=== PATIENT | female | born 1980 | race Caucasian/White ===

== ENCOUNTER 2018-07-15 21:22 | Emergency (ER) | payer OTHER, BC ==
[2018-07-15 21:36] VITALS: BP 145/83; PULSE 86; TEMP 98.6; BMI 31.2
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
[2018-07-15] MEDS ORDERED: IBUPROFEN 600 MG TABLET (FP) PO ONE ×2 (21:50→21:51)
== END 2018-07-15 21:57 | disposition home or self-care (01) ==
LOC: FER 21:22
DX: S16.1XXA Strain of muscle, fascia and tendon at neck level, initial encounter (principal); S39.012A Strain of muscle, fascia and tendon of lower back, initial encounter; V43.52XA Car driver injured in collision with other type car in traffic accident, initial encounter; Y93.89 Activity, other specified; Y92.410 Unspecified street and highway as the place of occurrence of the external cause
CPT/HCPCS: 99281-25

== ENCOUNTER 2023-10-09 18:54 | Day surgery (SDC) | payer BC ==
[2023-10-09 20:27] LABS: HEMOGLOBIN 14.8 G/dL (10.7-15.3); MCH 30.8 pg (25.7-33.7); MEAN CELL VOLUME 93.3 fl (80-96); MEAN PLT VOLUME 7.3 fl (7.5-11.1); PLATELET COUNT 313.5 10^3/uL (134-434); RBC 4.82 10^6/uL (3.60-5.2); RDW 13.6 % (11.6-15.6); WHITE BLOOD COUNT 16.4 10^3/uL (4.0-10.8)
[2023-10-09 20:32] LABS: INR 0.98 (0.83-1.09); PROTHROMBIN TIME (PATIENT) 11.2 SEC (9.7-13.0)
[2023-10-09] MEDS ORDERED: AMPICILLIN NA/SULBACTAM NA 3 GM VIAL ONE (20:50)
[2023-10-09 20:52] LABS: PLATELET ESTIMATE SLT INCREASE
[2023-10-09 20:53] LABS: ALBUMIN 4.1 g/dl (3.4-5.0); ALK PHOS 50 U/L (45-117); ANION GAP 9 mmol/L (4-13); BILIRUBIN,TOTAL 0.2 mg/dl (0.2-1); CALCIUM 9.6 mg/dl (8.5-10.1); CHLORIDE 105 mmol/L (98-107); CO2 26 mmol/L (21-32); CREATININE 0.7 mg/dl (0.6-1.3); GLUCOSE,RANDOM 92 mg/dl (74-106); POTASSIUM 3.9 mmol/L (3.5-5.1); SGOT/AST 14 U/L (15-37); SGPT/ALT 15 U/L (7-52); SODIUM 140 mmol/L (136-145); TOT PROT 7.2 g/dl (6.4-8.2)
[2023-10-09] MEDS: AMPICILLIN NA/SULBACTAM NA 3 GM in SODIUM CHLORIDE 100 ML IVPB ONE (20:57)
[2023-10-09] MEDS ORDERED: ACETAMINOPHEN INJECTION 100 ML IVPB ONE (22:53)
[2023-10-09] MEDS: ACETAMINOPHEN 1000 MG/100 ML BAG IVPB ONE (22:56)
[2023-10-10] MEDS: ACETAMINOPHEN 325 MG TABLET (FP) PO PRN (05:00)
[2023-10-10] MEDS: CLINDAMYCIN 600MG PREMIX IVPB 600 MG/50 ML BAG IVPB SCH ×2 (05:57→18:02)
[2023-10-10] MEDS: DOXYCYCLINE INJECTION 100 MG in DEXTROSE 5%-WATER 100 ML IVPB SCH ×2 (05:58→22:40)
[2023-10-10 07:55] VITALS: BMI 25.5
[2023-10-10] MEDS: INSULIN ASPART SLIDING SCALE (NOVOLOG) 1 VIAL SQ SCH ×2 (07:58→11:48)
[2023-10-10 08:12] LABS: BASO % 0.3 % (0-2.0); EOS % 0.3 % (0-4.5); HEMATOCRIT 38.6 % (32.4-45.2); HEMOGLOBIN 13.2 GM/dL (10.7-15.3); MCH 31.3 pg (25.7-33.7); MCHC 34.3 g/dl (32.0-36.0); MEAN CELL VOLUME 91.2 fl (80-96); MEAN PLT VOLUME 7.2 fl (7.5-11.1); MONO % 7.7 % (3.8-10.2); NEUT % 78.7 % (42.8-82.8); PLATELET COUNT 301 10^3/uL (134-434); RBC 4.23 M/mm3 (3.60-5.2); RDW 12.9 % (11.6-15.6); WHITE BLOOD COUNT 14.1 K/mm3 (4.0-10.0)
[2023-10-10 08:27] LABS: POTASSIUM 4.3 mmol/L (3.5-5.1)
[2023-10-10 08:37] LABS: ALBUMIN 3.1 g/dl (3.4-5.0); CALCIUM 8.5 mg/dL (8.5-10.1)
[2023-10-10 08:38] LABS: BLOOD UREA NITROGEN 10.2 mg/dL (7-18); MAGNESIUM 2.2 mg/dL (1.8-2.4)
[2023-10-10 08:39] LABS: CREATININE 0.5 mg/dL (0.55-1.3); PHOSPHOROUS 2.9 mg/dL (2.5-4.9)
[2023-10-10 08:41] LABS: BILIRUBIN,TOTAL 0.6 mg/dL (0.2-1); TOT PROT 6.6 g/dl (6.4-8.2)
[2023-10-10] MEDS ORDERED: PROPOFOL 20 ML ONE (08:58)
[2023-10-10] MEDS ORDERED: MIDAZOLAM HCL 2 MG/2 ML SINGLE DOSE VIAL ONE (08:58)
[2023-10-10] MEDS ORDERED: FENTANYL CITRATE/PF 50 MCG/ML VIAL ONE (08:58)
[2023-10-10] MEDS ORDERED: DOCUSATE SODIUM 100 MG CAPSULE (FP) PO PRN (09:44)
[2023-10-10] MEDS ORDERED: oxyCODONE HCL 5 MG TABLET PO PRN ×2 (09:45→14:12)
[2023-10-10] MEDS ORDERED: DOXYCYCLINE INJECTION 100 MG in DEXTROSE 5%-WATER 100 ML IVPB SCH (10:00)
[2023-10-10] MEDS ORDERED: ACETAMINOPHEN 325 MG TABLET (FP) PO PRN (10:12)
[2023-10-10] MEDS: NICOTINE POLACRILEX 2 MG GUM BC SCH (11:15)
[2023-10-10] MEDS: PSYLLIUM 5.85 GM PACKET PO SCH (11:41)
[2023-10-10] MEDS ORDERED: ACETAMINOPHEN 500 MG TABLET (FP) PO PRN (14:11)
[2023-10-10 15:55] VITALS: RESP 18
[2023-10-11 08:19] LABS: BASO % 0.2 % (0-2.0); EOS % 0.4 % (0-4.5); HEMATOCRIT 37.9 % (32.4-45.2); HEMOGLOBIN 13.1 GM/dL (10.7-15.3); LYMPH % 21.6 % (8-40); MCH 31.6 pg (25.7-33.7); MCHC 34.7 g/dl (32.0-36.0); MEAN CELL VOLUME 90.9 fl (80-96); MEAN PLT VOLUME 7.3 fl (7.5-11.1); MONO % 6.5 % (3.8-10.2); NEUT % 71.3 % (42.8-82.8); PLATELET COUNT 324 10^3/uL (134-434); RBC 4.16 M/mm3 (3.60-5.2); RDW 12.8 % (11.6-15.6); WHITE BLOOD COUNT 12.1 K/mm3 (4.0-10.0)
[2023-10-11 08:40] LABS: POTASSIUM 4.2 mmol/L (3.5-5.1)
[2023-10-11 08:43] LABS: BLOOD UREA NITROGEN 8.1 mg/dL (7-18)
[2023-10-11 08:46] LABS: CREATININE 0.5 mg/dL (0.55-1.3)
[2023-10-11 10:58] VITALS: BP 114/72; PULSE 63; TEMP 98.4
[2023-10-11] MEDS: CLINDAMYCIN HCL 150 MG CAPSULE (FP) PO ONE (12:13)
[2023-10-11] MEDS ORDERED: NICOTINE POLACRILEX 2 MG GUM BC PRN (14:00)
== END 2023-10-11 12:50 | disposition home or self-care (01) ==
LOC: FER 18:54 → J8W 10-10 04:10 → UNDOADMIN 10-10 04:10 → J8W 10-10 14:10 → UNDOADMIN 10-10 14:10 → JASUSAT 10-10 14:10
PROVIDERS: ATTEND Internal Medicine
PROC: 0D9P0ZZ Drainage of Rectum, Open Approach (ICD-10-PCS; principal; 2023-10-10 09:00)
DX: K61.2 Anorectal abscess (principal)
CPT/HCPCS: 36415; 72193-TC; 80048; 80053; 82962; 83036; 83735; 84100; 84702; 85025; 85610; 86850; 86900; 86901; 87070; 87076; 87186; 87205; 93005; 93010; 94760; 99285-25; J0131; Q9967